=== PATIENT | female | born 1955 | race Caucasian/White ===

== ENCOUNTER 2021-04-19 01:41 | Emergency (ER) | payer OTHER ==
[~2021-04-19] VITALS: Ht 167.6 cm; Wt 79.8 kg
[2021-04-19 02:19] LABS: HEMATOCRIT 38.6 % (37.0-47.0); HEMOGLOBIN 13.3 gm/dL (12.0-15.0); MCH 31.1 pg (26.0-34.0); MCHC 34.5 g/dL (28.0-37.0); RBC 4.29 mil/uL (4.20-5.00); WBC 8.8 thou/uL (4.0-11.0)
[2021-04-19 02:38] LABS: CALCIUM 9.1 mg/dL (8.5-10.1); CREATININE 1.7 mg/dL (0.6-1.3); POTASSIUM 3.6 mmol/L (3.5-5.1)
[2021-04-19 02:43] LABS: ALBUMIN 3.6 g/dL (3.4-5.0); TOTAL PROTEIN 6.7 g/dL (6.4-8.2)
[2021-04-19 02:56] LABS: ALCOHOL < 10 mg/dL (<10)
[2021-04-19 02:57] LABS: ACETAMINOPHEN < 2 ug/mL (10-30); SALICYLATE < 2.8 mg/dL (2.8-20.0)
[2021-04-19 03:10] LABS: URINE BILIRUBIN NEGATIVE (Negative); URINE BLOOD TRACE (Negative); URINE CLARITY SL HAZY; URINE COLOR YELLOW; URINE GLUCOSE-RANDOM NEGATIVE (Negative); URINE KETONES NEGATIVE (Negative); URINE LEUKOCYTES 3+ (Negative); URINE NITRITE NEGATIVE (Negative); URINE PROTEIN NEGATIVE (Negative); URINE UROBILINOGEN 0.2 E.U./dl (0.2-1.0)
[2021-04-19 03:12] LABS: BACTERIA >30 Many /HPF (None Seen); CASTS None Seen /LPF (None Seen); CRYSTALS None Seen /LPF (None Seen); MUCUS 0-3 Light strn/LPF (None Seen); SQUAMOUS 0-3 Few /LPF (0-3); URINE RBC 3-10 Few /HPF (0-2)
[2021-04-19] MEDS ORDERED: SIMVASTATIN80 MG PO (03:12)
[2021-04-19] MEDS ORDERED: METFORMIN HCL500 M3 PO (03:12)
[2021-04-19] MEDS ORDERED: CARVEDILOL25 MG PO (03:12)
[2021-04-19] MEDS ORDERED: JANTOVEN5 MG PO (03:13)
[2021-04-19] MEDS ORDERED: LISINOPRIL10 MG PO (03:13)
[2021-04-19] MEDS ORDERED: MEDI-LYTE TABL1 EACH PO (03:13)
[2021-04-19] MEDS ORDERED: AMLODIPINE-OLM1 EAC1 PO (03:14)
[2021-04-19] MEDS ORDERED: HYDROCHLOROTHIA25 M1 PO (03:14)
[2021-04-19] MEDS ORDERED: AUGMENTIN 500-1 EACH PO (03:17)
[2021-04-19 03:25] VITALS: BP 132/68
[2021-04-19 03:33] LABS: AMP/METHAMP Negative (Negative); BARBITURATES Negative (Negative); BENZODIAZEPINES Negative (Negative); COCAINE Negative (Negative); METHADONE Negative (Negative); OPIATES Negative (Negative); PCP Negative (Negative); THC Negative (Negative)
--- NOTE | 2021-04-19 10:31 | EKG ---
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[place] : 1955 Requested By: Nehal Robbins Order Number: [id number] MD: Terrence Lopez Measurements Intervals [place] Rate: 82 P: 57 TN: 181 QRS: -12 QRSD: 91 T: 36 QT: 370 QTc: 432 Interpretive Statements Sinus rhythm LAE, consider biatrial enlargement Inferior infarct, old No previous ECG available for comparison Electronically Signed On 04-19-2021 10:31:26 CDT by Terrence Lopez [email or web address] <ELECTRONICALLY SIGNED> By: Terrence Lopez MD, [facility] 04/19/21 1031 0147 0147 Terrence Lopez MD, [facility] /EPI
== END 2021-04-19 03:26 | disposition home or self-care (01) ==
LOC: M.ERS 01:41
PROVIDERS: Personal Emergency Response Attendant
DX: F03.91 Unspecified dementia, unspecified severity, with behavioral disturbance (principal); N39.0 Urinary tract infection, site not specified; Z79.01 Long term (current) use of anticoagulants; Z79.899 Other long term (current) drug therapy